=== PATIENT | male | born 1945 | race Caucasian/White ===

== ENCOUNTER 2016-09-29 08:10 | Outpatient (CLI) | payer MEDICARE ==
[2016-09-29 13:34] LABS: ALT (SGPT) 9 U/L (0-55); AST (SGOT) 16 U/L (5-34); Alkaline Phosphatase 63 U/L (40-150); Anion Gap 14 mmol/L (10-20); BUN (Urea Nitrogen) 20 mg/dL (8.4-25.7); Bilirubin, Total 0.5 mg/dL (0.2-1.2); Calc. Creatinine Clearance 0 mL/min (70-130); Calcium 9.3 mg/dL (7.8-10.44); Carbon Dioxide 28 mmol/L (23-31); Chloride 105 mmol/L (98-107); Estimated GFR-MDRD Greater than 90; Globulin 2.8 g/dL (2.4-3.5); LDL Cholesterol, Calculated 166 mg/dL; Protein, Total 7.3 g/dL (5.8-8.1)
[2016-09-29 13:53] LABS: Hemoglobin A1c 6.6 % (4.0-6.0)
[2016-09-29 14:53] LABS: Bilirubin Negative (Negative); Blood, Urine Negative (Negative); Glucose, Urine (Dipstick) Negative (Negative); Ketone, Urine Negative (Negative); Nitrite Negative (Negative); Protein, Urine (Dipstick) Negative (Neg-Trace); Urobilinogen 0.2 mg/dL (0.2-1.0)
[2016-09-29 15:08] LABS: Band 2 % (5-11); Hematocrit 47.7 % (42.0-52.0); Mean Platelet Volume 7.8 fL (7.4-10.4); Neutrophil 65 % (42-75); White Blood Cell (WBC) Count 7.4 thou/uL (4.8-10.8)
[2016-09-29 15:19] LABS: Bacteria/HPF 2+ HPF (None Seen); RBC/HPF None Seen HPF (0-3); Squamous Epithelial None Seen HPF (0-3); WBC/HPF None Seen HPF (0-3)
== END 2016-09-29 08:11 ==
LOC: NAVSJIPCSP 08:10
PROVIDERS: ATTEND Internal Medicine
DX: E78.5 Hyperlipidemia, unspecified (principal); E11.9 Type 2 diabetes mellitus without complications; I11.9 Hypertensive heart disease without heart failure; N40.1 Benign prostatic hyperplasia with lower urinary tract symptoms
CPT/HCPCS: 36415; 80053; 80061; 81001; 82043; 82570; 83036; 85025; G0103

== ENCOUNTER 2016-12-28 12:00 | Outpatient (CLI) | payer MEDICARE ==
[2016-12-28 13:10] LABS: Hemoglobin A1c 6.6 % (4.0-6.0)
[2016-12-28 13:39] LABS: Cardiac Risk 4.6 (Less than 4.5)
== END 2016-12-28 12:01 ==
LOC: NAVSJIPCSP 12:00
PROVIDERS: ATTEND Internal Medicine
DX: E78.5 Hyperlipidemia, unspecified (principal); E11.9 Type 2 diabetes mellitus without complications
CPT/HCPCS: 36415; 80061; 83036

== ENCOUNTER 2017-04-14 08:59 | Outpatient (CLI) | payer MEDICARE ==
[2017-04-14 12:53] LABS: Cardiac Risk 4.6 (Less than 4.5)
== END 2017-04-14 09:00 | disposition home or self-care (01) ==
LOC: NAVSJIPCSP 08:59
PROVIDERS: ATTEND Internal Medicine
DX: Z12.11 Encounter for screening for malignant neoplasm of colon (principal); E11.9 Type 2 diabetes mellitus without complications; E78.5 Hyperlipidemia, unspecified; Z79.899 Other long term (current) drug therapy
CPT/HCPCS: 36415; 80061; 83036

== ENCOUNTER 2017-04-18 14:33 | Outpatient (CLI) | payer MEDICARE | END 2017-04-18 14:34 | disposition home or self-care (01) | LOC: NAVSJIPCSP 14:33 | PROVIDERS: ATTEND Internal Medicine | DX: Z12.11 Encounter for screening for malignant neoplasm of colon (principal); E11.9 Type 2 diabetes mellitus without complications; E78.5 Hyperlipidemia, unspecified; Z79.899 Other long term (current) drug therapy | CPT/HCPCS: 82274 ==

== ENCOUNTER 2018-01-09 15:52 | Outpatient (CLI) | payer MEDICARE ==
--- NOTE | 2018-01-09 16:20 | RAD ---
SACRUM AND COCCYX STANDARD 2 VIEWS: Date: 01/09/18 HISTORY: Back pain due to injury. COMPARISON: None. FINDINGS: No fracture. No malalignment. SI joints mildly degenerative. IMPRESSION: No acute fracture or malalignment. POS: [facility]MIE
== END 2018-01-09 15:53 | disposition home or self-care (01) ==
LOC: NAV ERS 15:52
PROVIDERS: ATTEND Internal Medicine
DX: S39.92XA Unspecified injury of lower back, initial encounter (principal)
CPT/HCPCS: 72220

== ENCOUNTER 2019-09-05 08:46 | Emergency (ER) | payer MEDICARE ==
[2019-09-05] MEDS ORDERED: Dexamethasone 20 MG/5 ML VIAL ONE (09:14)
[2019-09-05] MEDS ORDERED: Ketorolac Tromethamine 30 MG/ML VIAL ONE (09:14)
== END 2019-09-05 09:37 | disposition home or self-care (01) ==
LOC: NAV ERS 08:46
DX: S13.9XXA Sprain of joints and ligaments of unspecified parts of neck, initial encounter (principal); R20.2 Paresthesia of skin; E11.9 Type 2 diabetes mellitus without complications; E78.5 Hyperlipidemia, unspecified; E78.00 Pure hypercholesterolemia, unspecified; I10 Essential (primary) hypertension; Z87.891 Personal history of nicotine dependence; Z79.899 Other long term (current) drug therapy; Z79.84 Long term (current) use of oral hypoglycemic drugs; Z79.891 Long term (current) use of opiate analgesic; X50.1XXA Overexertion from prolonged static or awkward postures, initial encounter
CPT/HCPCS: 96372; 99283; J1100; J1885